=== PATIENT | male | born 1975 | race Caucasian/White ===

== ENCOUNTER 2016-12-22 15:14 | Inpatient (IN) | payer MEDICAID, OTHER ==
[2016-12-22 15:36] LABS: % IMMATURE GRANULYOCYTES 0.4 % (0.0-1.1); ABSOLUTE IMMATURE GRANULOCYTES 0.06 10^3/uL (0.00-0.10); ADD DIFF? NO; ADD MORPH? NO; ADD SCAN? NO; ATYPICAL LYMPHOCYTE FLAG 0 (0-99); FRAGMENT RBC FLAG 0 (0-99); HEMATOCRIT 47.6 % (40.0-51.0); HEMOGLOBIN 17.1 g/dL (13.7-17.5); LEFT SHIFT FLG 0 (0-99); LIPEMIA HEMOLYSIS FLAG 90 (0-99); MEAN CELL HEMOGLOBIN CONCENTR. 35.9 g/dL (32.4-36.7); MEAN CELL VOLUME 86.2 fL (81.5-99.8); MEAN PLATELET VOLUME 10.7 fL (8.7-11.7); PLATELET CLUMPS FLAG 20 (0-99); PLATELET COUNT 195 10^3/uL (150-400); RED BLOOD CELL COUNT 5.52 10^6/uL (4.40-6.38); RED CELL DISTRIBUTION WIDTH 13.5 % (11.5-15.2)
[2016-12-22] MEDS ORDERED: NS 1,000 ML IV ONE (15:37)
[2016-12-22 15:47] LABS: ANION GAP 13 mEq/L (8-16); CALCIUM 9.5 mg/dL (8.5-10.4); CARBON DIOXIDE 24 mEq/l (22-31); CHLORIDE 106 mEq/L (97-110); ETHANOL SERUM < 10 mg/dL (0-10); GLOMERULAR FILTRATION RATE > 60; GLUCOSE 81 mg/dL (70-100); POTASSIUM 3.9 mEq/L (3.5-5.2); SODIUM 143 mEq/L (134-144)
--- NOTE | 2016-12-22 15:47 | EDPHY ---
HPI/HX/ROS/PE/MDM Narrative: CHIEF COMPLAINT: Dizziness, weakness, numbness, left-sided facial droop HPI: The patient is a 41 y/o male with a history of hypertension and multiple head injuries complaining of dizziness, weakness, numbness, and left-sided facial droop onset 12:30 PM, 3 hours ago. He has a history of diplopia intermittently for the past few years. He has had nausea and vomiting for the past few weeks. He started taking hypertension medications 3 days ago. This morning he was cutting down trees on his property when a tree hit him on the forehead, causing an abrasion. He denies any symptoms after the injury. Around 12:30 PM, he was in his wood shed when he began feeling dizzy, like the "room was spinning". He sat down and a few minutes later laid down and either went to sleep or lost consciousness. About 45 minutes later, he got up and walked into his house. Family then took him to the ED. He has continued dizziness, numbness and weakness in the extremity, intermittent changes in his facial sensation, headache, facial droop, and slow speech. He denies any other associated symptoms. REVIEW OF SYSTEMS: Aside from elements discussed in the HPI, a comprehensive 10-point review of systems was reviewed and is negative. PMH: Multiple head injuries, hypertension, double vision, nausea, vomiting SOCIAL HISTORY: Lives in [facility], employed, PHYSICAL EXAM: General:Patient is alert, in no acute distress. ENT:Eyes are normal to inspection. ENT inspection normal. Neck: Normal inspection. Full range of motion. Respiratory:No respiratory distress. Breath sounds normal bilaterally. Cardiovascular: Regular rate and rhythm. Strong peripheral pulses. Normal cap refill. Abdomen:The abdomen is nontender to palpation. There are no peritoneal signs. There are normal bowel sounds. Back: Normal to inspection. No tenderness to palpation. Skin: 2 cm abrasion to forehead. Normal color. No rash. Warm and dry. Extremities: Normal appearance. Full range of motion. Neuro: Oriented x3. Weakness in left eye to lateral gaze. Mild left side pronator drift. Abnormal finger to nose with left hand. ED Course: Study: CT of the head Indication: Left-side weakness Results: CT scan of the head was obtained. The results of the study are: normal The study was read by the radiologist, Dr. Lopez. I viewed the images myself on the PACS system. EKG was ordered and interpreted by myself. Please see [employer] system for official reading. Study: CTA of the head and neck Indication: Left-side weakness Results: CTA scan of the head and neck was obtained. The results of the study are: normal The study was read by the radiologist, Dr. Monroe. I viewed the images myself on the PACS system. Study: MRI of the brain Indication: Left-sided weakness Results: MRI of the brain was obtained. The results of the study are: Acute right thalamic infarct The study was read by the radiologist, Dr. Monroe. I viewed the images myself on the PACS system. 160: Due to patient's condition I decided to call a stroke alert and consult with [facility]. 1948: I have continued to follow [facility]'s advise and MRI of his brain indicates acute right thalamic infarct which explains some of the patient' s symptoms. I will consult with them again for further actions. 1953: I spoke with Dr. Garcia regarding this patient. She advises to admit to the hospitalist service. I reassessed patient and informed him of the results of the workup. They agree to admission. 1957: I spoke with hospitalist service regarding admission for this patient. Dr. Oscar agrees to admit. MDM: This patient presents with facial droop, diplopia and ataxia. His workup was made somewhat difficult by report of possible alcohol use, possible head trauma from a tree branch, and his report that he has been suffering from diplopia on/ off for years. He was also unclear on the timing of onset of his deficits. Ultimately, MRI reveals thalamic CVA. On initial eval, [facility] did not feel that tPA was indicated secondary to timing. Patient treated with ASA after swallow screen. He will require admission for further workup and treatment. - Data Points Imaging Results: Imaging Impressions Head CT 12/22/16 15:29 Impression: Normal noncontrast CT of the brain. Results called to Dr. Cornell Coon at 3:55 PM at the time of the interpretation. Head CTA 12/22/16 16:34 Impression: Normal CT angiography of the neck. CT ANGIOGRAPHY OF THE HEAD: The major vessels of the [place] demonstrate no evidence of an aneurysm, avascular malformation, flow-limiting stenosis, or occlusion. The distal cervical, petrous, cavernous, and supraclinoid portions of the right and left internal carotid arteries and the vertebrobasilar system demonstrate no evidence of a flow-limiting stenosis, aneurysm, occlusion, or dissection. There is a dual supply to the posterior cerebral arteries, with circulatory inflow variant provided by the patent posterior communicating arteries off the supraclinoid ICAs. The superior sagittal sinus, transverse sinuses, and major veins demonstrate no evidence of intraluminal thrombi. Impression: Negative CT angiogram of the brain. Measurement of carotid stenosis is based on the residual internal carotid diameter with [place] Symptomatic Carotid Endarterectomy Trial (NASCET) based stenosis levels. Findings were discussed with Cornell Coon MD at 17:52, on 12/22/2016. Neck CTA 12/22/16 16:34 Impression: Normal CT angiography of the neck. CT ANGIOGRAPHY OF THE HEAD: The major vessels of the [place] demonstrate no evidence of an aneurysm, avascular malformation, flow-limiting stenosis, or occlusion. The distal cervical, petrous, cavernous, and supraclinoid portions of the right and left internal carotid arteries and the vertebrobasilar system demonstrate no evidence of a flow-limiting stenosis, aneurysm, occlusion, or dissection. There is a dual supply to the posterior cerebral arteries, with circulatory inflow variant provided by the patent posterior communicating arteries off the supraclinoid ICAs. The superior sagittal sinus, transverse sinuses, and major veins demonstrate no evidence of intraluminal thrombi. Impression: Negative CT angiogram of the brain. Measurement of carotid stenosis is based on the residual internal carotid diameter with [place] Symptomatic Carotid Endarterectomy Trial (NASCET) based stenosis levels. Findings were discussed with Cornell Coon MD at 17:52, on 12/22/2016. Brain MRI 12/22/16 18:04 Impression: Acute right thalamic infarct. Imaging: Discussed imaging studies w/ assistant clinical nurse manager Radiologist, I viewed and interpreted images myself Laboratory Results: Laboratory Results 12/22/16 15:26 12/22/16 15:26 12/22/16 12/22/16 12/22/16 15:26 15:26 15:26 WBC RBC Hgb POC Hgb Hct POC Hct MCV MCH MCHC RDW Plt Count MPV Neut % (Auto) Lymph % (Auto) Garza % (Auto) Eos % (Auto) Baso % (Auto) Nucleat RBC Rel Count Absolute Neuts (auto) Absolute Lymphs (auto) Absolute Monos (auto) Absolute Eos (auto) Absolute Basos (auto) Absolute Nucleated RBC Immature Gran % Immature Gran # PT 13.2 SEC SEC (12.0-15.0) INR 1.01 (0.83-1.16) APTT 26.9 SEC SEC (23.0-38.0) POC Sodium Sodium 143 mEq/L mEq/L (134-144) POC Potassium Potassium 3.9 mEq/L mEq/L (3.5-5.2) POC Chloride Chloride 106 mEq/L mEq/L (97-110) Carbon Dioxide 24 mEq/l mEq/l (22-31) Anion Gap 13 mEq/L mEq/L (8-16) POC BUN BUN 12 mg/dL mg/dL (7-23) Creatinine 1.0 mg/dL mg/dL (0.7-1.3) POC Creatinine Estimated GFR > 60 Glucose 81 mg/dL mg/dL (70-100) POC Glucose Calcium 9.5 mg/dL mg/dL (8.5-10.4) Troponin I < 0.012 ng/mL ng/mL (0.000-0.034) Ethyl Alcohol < 10 mg/dL mg/dL (0-10) 12/22/16 12/22/16 15:26 15:25 WBC 13.88 10^3/uL H 10^3/uL (3.80-9.50) RBC 5.52 10^6/uL 10^6/uL (4.40-6.38) Hgb 17.1 g/dL g/dL (13.7-17.5) POC Hgb 17.0 gm/dL gm/dL (13.7-17.5) Hct 47.6 % % (40.0-51.0) POC Hct 50 % % (40-51) MCV 86.2 fL fL (81.5-99.8) MCH 31.0 pg pg (27.9-34.1) MCHC 35.9 g/dL g/dL (32.4-36.7) RDW 13.5 % % (11.5-15.2) Plt Count 195 10^3/uL 10^3/uL (150-400) MPV 10.7 fL fL (8.7-11.7) Neut % (Auto) 76.6 % H % (39.3-74.2) Lymph % (Auto) 16.5 % % (15.0-45.0) Garza % (Auto) 5.1 % % (4.5-13.0) Eos % (Auto) 0.9 % % (0.6-7.6) Baso % (Auto) 0.5 % % (0.3-1.7) Nucleat RBC Rel Count 0.0 % % (0.0-0.2) Absolute Neuts (auto) 10.62 10^3/uL H 10^3/uL (1.70-6.50) Absolute Lymphs (auto) 2.29 10^3/uL 10^3/uL (1.00-3.00) Absolute Monos (auto) 0.71 10^3/uL 10^3/uL (0.30-0.80) Absolute Eos (auto) 0.13 10^3/uL 10^3/uL (0.03-0.40) Absolute Basos (auto) 0.07 10^3/uL 10^3/uL (0.02-0.10) Absolute Nucleated RBC 0.00 10^3/uL 10^3/uL (0-0.01) Immature Gran % 0.4 % % (0.0-1.1) Immature Gran # 0.06 10^3/uL 10^3/uL (0.00-0.10) PT INR APTT POC Sodium 144 mEq/L mEq/L (134-144) Sodium POC Potassium 3.6 mEq/L mEq/L (3.3-5.0) Potassium POC Chloride 106 mEq/L mEq/L (97-110) Chloride Carbon Dioxide Anion Gap POC BUN 12 mg/dL mg/dL (7-23) BUN Creatinine POC Creatinine 1.1 mg/dL mg/dL (0.7-1.3) Estimated GFR Glucose POC Glucose 83 mg/dL mg/dL (70-100) Calcium Troponin I Ethyl Alcohol Medications Given: Discontinued Medications Sodium Chloride (Ns) 1,000 mls @ 0 mls/hr IV EDNOW ONE; Wide Open PRN Reason: Protocol Stop: 12/22/16 15:38 Last Admin: 12/22/16 15:54 Dose: 1,000 mls Point of Care Test Results: 12/22/16 15:25 POC Sodium 144 POC Potassium 3.6 POC Chloride 106 POC BUN 12 POC Creatinine 1.1 POC Glucose 83 General Time Seen by Provider: 12/22/16 15:27 Initial Vital Signs: Initial Vital Signs Temperature (C) 37.0 C 12/22/16 15:17 Heart Rate 70 12/22/16 15:17 Respiratory Rate 16 12/22/16 15:17 Blood Pressure 159/101 H 12/22/16 15:17 O2 Sat (%) 98 12/22/16 15:17 O2 Delivery Mode Room Air Allergies/Adverse Reactions: No Known Allergies Allergy (Unverified 12/22/16 15:21) Home Medications: Medication Instructions Recorded Herbals/Supplements -Info Only 1 ea PO DAILY 12/22/16 Departure - Departure Disposition: [facility] Inpatient Acute Clinical Impression: Thalamic infarct, acute Condition: Fair Report Scribed for: Cornell Coon Report Scribed by: Jyothi Cuevas Date of Report: 12/22/16 Time of Report: 15:50 Physician Review and Approval Statement: Portions of this note were transcribed by an ED scribe. I personally performed the history, physical exam, and medical decision making; and confirm the accuracy of the information in the transcribed note.
[2016-12-22 15:51] LABS: INR 1.01 (0.83-1.16); PROTIME(PATIENT) 13.2 SEC (12.0-15.0)
[2016-12-22 15:52] LABS: APTT 26.9 SEC (23.0-38.0)
[2016-12-22] MEDS ORDERED: ALTEPLASE 100 MG/100 ML VIAL IV ONE (16:07)
--- NOTE | 2016-12-22 16:09 | CPEKG ---
Heart Rate: 50 RR Interval: 1200 P-R Interval: 160 QRSD Interval: 106 QT Interval: 468 QTC Interval: 427 P [place]: 8 QRS [place]: -20 T Wave [place]: 21 EKG Severity - ABNORMAL ECG - EKG Impression: SINUS RHYTHM EKG Impression: LEFT VENTRICULAR HYPERTROPHY Electronically Signed By: Graham Berrios 23-Dec-2016 08:43:16
[2016-12-22] MEDS ORDERED: IOPAMIDOL (ISOVUE 370) 100 ML BTL IV ONE (17:04)
[2016-12-22] MEDS ORDERED: GADOBUTROL 10 ML VIAL IVP ONE (18:15)
[2016-12-22] MEDS ORDERED: ASPIRIN 325 MG TAB PO ONE (20:04)
[2016-12-22] MEDS ORDERED: ZOLPIDEM TARTRATE 5 MG TAB PO PRN (21:34)
[2016-12-22] MEDS ORDERED: ONDANSETRON DISINTEGRATING 4 MG TAB PO PRN (21:34)
[2016-12-22] MEDS ORDERED: LORazepam 0.5 MG TAB PO PRN (21:34)
[2016-12-22] MEDS ORDERED: ONDANSETRON 4 MG/2 ML VIAL IVP PRN (21:34)
[2016-12-22] MEDS ORDERED: PROMETHAZINE HCL 25 MG/ML INJ IVP PRN (21:34)
--- NOTE | 2016-12-22 21:41 | PDGENHP ---
History and Physical - Chief Complaint double vision, vertigo - History of Present Illness 41 yo M with PMH of multiple head injuries but otherwise no real PMH presenting with acute onset of diplopia and vertigo beginning this afternoon. He notes he was doing yardwork when it began, he was cutting down a tree which ended up hitting him in the head. He felt dizzy and was having double vision shortly after that and either laid down and fell asleep or possibly fainted. Woke several hours later still with double vision, left sided weakness and left facial droop. Came to the ER, seen by tele neuro but noted to be outside of the window for TPA. Currently still having some left sided weakness but improved from prior, blurry vision on and off and dizzy when ambulating. GF present at bedside notes he has had blurry vision on and off x years and also had some kind of GI illness x 3 weeks that is now better. History Information - Allergies/Home Medication List Allergies/Adverse Reactions: No Known Allergies Allergy (Unverified 12/22/16 15:21) Home Medications: Herbals/Supplements -Info Only 1 ea PO DAILY 12/22/16 [Last Taken 12/22/16] I have personally reviewed and updated: family history, medical history, social history, surgical history - Past Medical History Additional medical history: multiple head injuries - Surgical History Reports: no pertinent surgical hx - Family History Additional family history: Father at age 54 of pna and renal failure. Mother still alive, has htn and liver disease - Social History Smoking Status: Current every day smoker Tobacco Use: Secondhand Alcohol Use: Rarely Drug Use: None Review of Systems Review of Systems: ROS: 10pt was reviewed & negative except for what was stated in HPI & below Physical Exam Physical Exam: Temp Pulse Resp BP Pulse Ox 36.9 C 53 L 18 126/79 H 97 12/22/16 20:10 12/22/16 20:10 12/22/16 20:10 12/22/16 20:10 12/22/16 20:10 Constitutional: no apparent distress, appears nourished Eyes: PERRL, anicteric sclera Ears, Nose, Mouth, Throat: moist mucous membranes, hearing normal Cardiovascular: regular rate and rhythym, no murmur, rub, or gallop, systolic murmur Respiratory: no respiratory distress, no rales or rhonchi, clear to auscultation Gastrointestinal: normoactive bowel sounds, soft, non-tender abdomen Genitourinary: no bladder tenderness Skin: warm, normal color, mottled Musculoskeletal: full muscle strength, no muscle tenderness Neurologic: AAOx3 Psychiatric: interacting appropriately, not anxious, not encephalopathic Lab Data & Imaging Review 12/22/16 15:26 12/22/16 15:26 WBC 13.88 10^3/uL (3.80-9.50) H 12/22/16 15: RBC 5.52 10^6/uL (4.40-6.38) 12/22/16 15: Hgb 17.1 g/dL (13.7-17.5) 12/22/16 15: POC Hgb 17.0 gm/dL (13.7-17.5) 12/22/16 15:25 Hct 47.6 % (40.0-51.0) 12/22/16 15: POC Hct 50 % (40-51) 12/22/16 15:25 MCV 86.2 fL (81.5-99.8) 12/22/16 15: MCH 31.0 pg (27.9-34.1) 12/22/16 15: MCHC 35.9 g/dL (32.4-36.7) 12/22/16 15: RDW 13.5 % (11.5-15.2) 12/22/16 15: Plt Count 195 10^3/uL (150-400) 12/22/16 15: MPV 10.7 fL (8.7-11.7) 12/22/16 15: Neut % (Auto) 76.6 % (39.3-74.2) H 12/22/16 15: Lymph % (Auto) 16.5 % (15.0-45.0) 12/22/16 15: [place] % (Auto) 5.1 % (4.5-13.0) 12/22/16 15: Eos % (Auto) 0.9 % (0.6-7.6) 12/22/16 15: Baso % (Auto) 0.5 % (0.3-1.7) 12/22/16 15: Nucleat RBC Rel Count 0.0 % (0.0-0.2) 12/22/16 15:26 Absolute Neuts (auto) 10.62 10^3/uL (1.70-6.50) H 12/22/16 15:26 Absolute Lymphs (auto) 2.29 10^3/uL (1.00-3.00) 12/22/16 15:26 Absolute Monos (auto) 0.71 10^3/uL (0.30-0.80) 12/22/16 15:26 Absolute Eos (auto) 0.13 10^3/uL (0.03-0.40) 12/22/16 15:26 Absolute Basos (auto) 0.07 10^3/uL (0.02-0.10) 12/22/16 15:26 Absolute Nucleated RBC 0.00 10^3/uL (0-0.01) 12/22/16 15:26 Immature Gran % 0.4 % (0.0-1.1) 12/22/16 15:26 Immature Gran # 0.06 10^3/uL (0.00-0.10) 12/22/16 15:26 PT 13.2 SEC (12.0-15.0) 12/22/16 15:26 INR 1.01 (0.83-1.16) 12/22/16 15:26 APTT 26.9 SEC (23.0-38.0) 12/22/16 15:26 POC Sodium 144 mEq/L (134-144) 12/22/16 15:25 Sodium 143 mEq/L (134-144) 12/22/16 15:26 POC Potassium 3.6 mEq/L (3.3-5.0) 12/22/16 15:25 Potassium 3.9 mEq/L (3.5-5.2) 12/22/16 15:26 POC Chloride 106 mEq/L (97-110) 12/22/16 15:25 Chloride 106 mEq/L (97-110) 12/22/16 15:26 Carbon Dioxide 24 mEq/l (22-31) 12/22/16 15:26 Anion Gap 13 mEq/L (8-16) 12/22/16 15:26 POC BUN 12 mg/dL (7-23) 12/22/16 15:25 BUN 12 mg/dL (7-23) 12/22/16 15:26 Creatinine 1.0 mg/dL (0.7-1.3) 12/22/16 15:26 POC Creatinine 1.1 mg/dL (0.7-1.3) 12/22/16 15:25 Estimated GFR > 60 12/22/16 15:26 Glucose 81 mg/dL (70-100) 12/22/16 15:26 POC Glucose 83 mg/dL (70-100) 12/22/16 15:25 Calcium 9.5 mg/dL (8.5-10.4) 12/22/16 15:26 Troponin I < 0.012 ng/mL (0.000-0.034) 12/22/16 15:26 Ethyl Alcohol < 10 mg/dL (0-10) 12/22/16 15:26 Visualized and Interpreted imaging results: Yes Interpretation: head CT: normal. Head/neck CTA: normal. Brain MRI: acute right thalamic stroke Visualized and Interpreted EKG results: Yes EKG Interpretation: Positive for: LVH, normal sinsus rhythm Assessment & Plan Assessment: Thalamic infarct, acute (Acute) 41 yo M with no significant PMH presenting with vision changes and vertigo found to be 2/2 acute right thalamic stroke # acute right thalamic stroke: with no known RFs, patient presented out of the window for TPA. Will monitor on telemetry, obtain echocardiogram, lipid panel and hgb A1c. Neurology consulted. # bradycardia: mildly bradycardic and asymptomatic thus far with that, as above , monitoring on tele. If w/u in house negative, may require outpatient holter/ event monitor for further evaluation. # leukocytosis: without s/s to suggest infection and likely stress response, will repeat cbc in am # dispo: given acute CVA, high risk in young patient without known risk factors , will require > 48 hours stay for eval/mgmt Patient new to my care. Old records reviewed and summarized as above. Care plan reviewed with ER doctor including plans for neurology consult.
[2016-12-22] MEDS: NICOTINE 14 MG/24 HR PATCH TD SCH (23:49)
[2016-12-23 05:04] LABS: HEMATOCRIT 42.3 % (40.0-51.0); HEMOGLOBIN 14.9 g/dL (13.7-17.5); MEAN CELL HEMOGLOBIN 30.7 pg (27.9-34.1); MEAN CELL HEMOGLOBIN CONCENTR. 35.2 g/dL (32.4-36.7); RED BLOOD CELL COUNT 4.86 10^6/uL (4.40-6.38); RED CELL DISTRIBUTION WIDTH 13.8 % (11.5-15.2)
[2016-12-23 05:21] LABS: CHOLESTEROL 116 mg/dL (140-200); CHOLESTEROL/HDL RATIO 3.31 RATIO (1.00-4.97); HIGH DENSITY LIPOPROTEIN 35 mg/dL (40-65); LDL/HDL RATIO 1.51 RATIO (1.00-3.64); LOW DENSITY LIPOPROTEIN 53 mg/dL (70-100); NON-HIGH DENSITY LIPOPROTEIN 81 mg/dL (90-129); TRIGLYCERIDE 144 mg/dL (40-150); VERY LOW DENSITY LIPOPROTEINS 28 mg/dL (8-25)
[2016-12-23] MEDS: ACETAMINOPHEN 325 MG TAB PO PRN ×3 (05:24→21:43)
[2016-12-23] MEDS: oxyCODONE IR 5 MG TAB PO PRN ×2 (05:25→21:43)
[2016-12-23] MEDS: ASPIRIN 81 MG CHEWABLE TAB PO SCH (08:41)
[2016-12-23] MEDS: NICOTINE 14 MG/24 HR PATCH TD SCH (08:41)
[2016-12-23 09:45] LABS: HEMOGLOBIN A1C 5.5 % (4.0-6.0)
--- NOTE | 2016-12-23 10:20 | PDMN ---
Medical Necessity Medical necessity: Pt meets IP criteria per MD; est los >2 mn for eval/tx of acute R thalamic stroke w/vision changes, vertigo, bradycardia & leukocytosis; hx multiple head injuries; per H&P & order 12/22/16
--- NOTE | 2016-12-23 10:27 | NEUROPROG ---
Assessment: HOSPITAL NEUROLOGY CONSULT REQUESTING: Dawn Oscar MD REASON: stroke HPI: 41 year old right-handed man with a history of multiple head injuries presented to our ED yesterday as a stroke alert. Patient was felling trees on his property yesterday morning. He notes an aspen tree had pinned down another tree. The aspen was putting pressure on a large branch. He cut the aspen and the other tree's branch recoiled, striking him in the head. He denies LOC, but he did suffer a brow abrasion. He felt lightheaded after the blow, like he might pass out. He also had horizontal diplopia intermittently (though this seems long standing per patient report). He walked to his wood shed and sat down. He thinks he either passed out or fell asleep for 45 minutes. He regained awareness and went to his house, where his noted a left facial droop. The patient also felt his left arm and leg were weak. He denies any sensation loss, vision loss, speech/language disturbance. No prior history of stroke/TIA. CT head was done in the ED and was normal. CTA head/neck was also normal. MRI brain wow was done in the ED revealing an acute ischemic lacunar stroke in the right thalamus. Telestroke was consulted and he was not deemed a thrombolytic candidate due to being outside the window for intervention. He was admitted for further workup. Today, he feels fatigued and continues to have intermittent diplopia. He feels his weakness is better. ROS: As per the HPI, otherwise a complete 12 point ROS was performed and is negative ALLERGIES AND MEDS: As recorded in the EMR - reviewed and reconciled PFSH: As per the intake H&P by Dr. Oscar from yesterday EXAM: VS reviewed in EMR GEN: WDWN laying in NAD HEENT: NCAT, sclera anicteric, conjunctiva not injected, MMM, oropharynx clear, no scalp tenderness NECK: supple, nontender, no meningismus CV: RRR s1 s2 wo m/r/c/g. Carotid pulses 2+ wo bruit NEURO: MS: awake, alert, oriented to all spheres. Speech nondysarthric. No language disturbance. Follows commands. Attends to both sides. Recent/remote memory grossly intact. Mood blunted/withdrawn. Adequate fund of knowledge. CN: pupils 4mm round and reactive. Fundi with sharp discs. VFF. Primary gaze centered. Full ocular motility. Facial sensation preserved. Face symmetric. Hearing grossly intact to finger rub. Palatoglossal movements intact. Shoulder shrug and head turn strong. MOTOR: normal bulk/tone. No adventitial movements. Full power throughout. SENSORY: intact to all modalities throughout. No extinction. COORD: no ataxia FN/HS. Barry preserved. REFLEX: plantars down. No clonus. DTRS 2/4. GAIT: deferred to PT safety eval DATA REVIEW: Labs reviewed in EMR TTE pending LDL 53 A1c pending PERSONALLY INTERPRETED RESULTS AND DATA: MRI brain wow - per the HPI CTA head/neck - per the HPI IMPRESSION AND RECOMMENDATIONS: // ACUTE ISCHEMIC STROKE Patient with acute right thalamic lacunar stroke with resolving symptoms. Suspect his longer standing diplopia is likely from prior head injuries. Suspect his stroke mechanism is from small vessel shearing with head trauma, but this will be a diagnosis of exclusion. He will need investigation for other stroke mechanisms in a young patient. - continue ASA - awaiting TTE result - goal normotension - add low dose statin for pleiotropic effects - LDL at goal < 70 - goal normoglycemia with A1c < 6.5 - PT/OT/RIDDLER OPERATOR consults - stroke education - patient counseling on avoiding further head injury - will need outpatient cardiology for evaluation/rule out of paroxysmal arrhythmia with mobile cardiac telemetry (ie 30 day Holter vs LINQ) - will need outpatient hematology consultation for evaluation/rule out of hypercoaguable state - followup with neurology in 6-8 weeks - followup PCP within 1 week of discharge Objective: Vital Signs Temp Pulse Resp BP Pulse Ox 36.2 C 53 L 17 134/75 H 94 12/23/16 07:59 12/23/16 07:59 12/23/16 07:59 12/23/16 07:59 12/23/16 07:59 Laboratory Results 12/23/16 04:50 12/22/16 12/23/16 12/24/16 05:59 05:59 05:59 Intake Total 1710 740 Balance 1710 740 PT 13.2 SEC (12.0-15.0) 12/22/16 15:26 INR 1.01 (0.83-1.16) 12/22/16 15:26 Allergies/Adverse Reactions: No Known Allergies Allergy (Unverified 12/22/16 15:21)
--- NOTE | 2016-12-23 11:02 | ECHO ---
[email or web address] [address] [address] Main: [phone] Fax: Transthoracic Echocardiogram Name: KEITH WEST MR#: [id number] Study Date: 12/23/2016 Study Time: 08:23 AM Date of : 1975 Age: 41 year(s) Height: 180.3 cm (71 in.) Weight: 81.65 kg (180 lb.) BSA: 2.02 m2 Gender: Male Examination: Echo Indication: Ischemic Stroke with Bubble Image Quality: Contrast: Requested by: Dawn Oscar BP: 134 mmHg/75 mmHg Heart Rate: Rhythm: Indication: Ischemic Stroke with Bubble Procedure Staff Color Consultant: Erik Merritt Reading Physician: Mamadou Moyer Requesting Provider: Conclusions: Normal global systolic LV function. EF is 61 %. Mild to moderate mitral regurgitation. Mild to moderate aortic valve regurgitation. Measurements: Chambers Valvular Assessment AV/MV Valvular Assessment TV/PV Normal Normal Normal Name Value Range Name Value Range Name Value Range Ao Pepper (MM): 2.9 cm (2.2 cm-3.7 AV Vmax: 1.84 m/s (1 m/s-1.7 TR Vmax: 2.89 mm/s ( - ) cm) m/s) TR PGmax: 33 mmHg ( - ) IVSd (2D): 0.8 cm (0.6 cm-1.1 AV maxP mmHg ( - ) syst. PAP: 38 mmHg ( - ) cm) AV meanP mmHg ( - ) LVDd (2D): 5.0 cm (4.2 cm-5.9 LVOT Vmax: 1.08 m/s (0.7 m/s-1.1 cm) m/s) LVDs (2D): 3.3 cm (2.1 cm-4 ILAN (Vmax): 1.8 cm2 ( - ) cm) ILAN (VTI): 1.8 cm ( - ) LVPWd (2D): 0.9 cm (0.6 cm-1 AR (PHT): 756 ms ( - ) cm) MV meanP mmHg ( - ) LVOTd 2.0 cm 2.0 cm mm MVA (Vmax): 1.6 m/s ( - ) LVEF (2D): 61 (>=54 %) Continued Measurements: Chambers Valvular Assessment AV/MV Valvular Assessment TV/PV Name Value Name Value Name Value LADs Lon.6 cm MV Annulus: 3.1 cm CVP (est.): 5 mmHg LA Area: 21.9 cm2 MV VTI: 56.00 cm LA Volume: 51 ml MR Vena Contracta: 0.6 cm LA Volume Index: 25.2 ml/m2 MR ERO: 0.200 cm2 Patient: KEITH WEST Study Date: 12/23/2016 Page 1 of 2 08:23 AM MR PISA radius: 7 mm MR Reg. Volume: 41 ml MR Reg. Fraction: 10 % AR Vmax: 4.53 cm/s AR VTI: 332.0 cm Findings: Left Ventricle: Normal size left ventricle. No LV hypertrophy. Normal global systolic LV function. EF is 61 %. No regional wall motion abnormality. Normal diastolic LV function. Right Ventricle: Normal size right ventricle. Normal RV function. Left Atrium: The left atrium is normal in size. An agitated saline study was performed and was negative for intracardiac shunting. Right Atrium: The right atrium is normal in size. Mitral Valve: The mitral valve is normal in appearance. Mild to moderate mitral regurgitation. Aortic Valve: The aortic valve is tri-leaflet. The aortic valve is normal in appearance. Mild to moderate aortic valve regurgitation. Tricuspid Valve: The tricuspid valve appears normal. Trivial tricuspid valve regurgitation. The pulmonary artery pressure is normal. Pulmonic Valve: The pulmonic valve is normal in appearance and function. Aorta: The aorta is normal. Pericardium: No pericardial effusion. (No Signature Object) Patient: KEITH WEST Study Date: 12/23/2016 Page 2 of 2 08:23 AM [id number]
--- NOTE | 2016-12-23 16:44 | ASMTCMCOM ---
CM Note CM Note Notes: Chart reviewed. patient admitted with acute stroke, He lives in [place] with his and four children. 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 History of CHI and infact sustained a blow yesterday while cutting down trees. OT recommending an inpatient evaluation for rehab. Kimberly cortés. Dr. Kyle placed order. Final needs to be determined. CM to follow. Date Signed: 12/23/2016 04:44 PM Electronically Signed By:Leny Busch RN
--- NOTE | 2016-12-23 17:35 | HOSPPROG ---
Hospitalist Progress Note Assessment/Plan: * Acute thalamic stroke -suspect small vessel shear due to head trauma -ASA, low dose statin -outpatient cardiology consult - 30 day Holter vs. LINQ -outpatient hematology for hypercoag work-up * Cognitive dysfunction due to stroke -rehab consult * Recurrent TBI with chronic diplopia * Bradycardia -asymptomatic * Tobacco dependence -patch -advise cessation Subjective: no new complaints Objective: Vital Signs Temp Pulse Resp BP Pulse Ox 37.1 C 51 L 17 128/70 H 94 12/23/16 15:44 12/23/16 15:44 12/23/16 15:44 12/23/16 15:44 12/23/16 15:44 Laboratory Results 12/23/16 04:50 12/22/16 12/23/16 12/24/16 05:59 05:59 05:59 Intake Total 1710 740 Balance 1710 740 PT 13.2 SEC (12.0-15.0) 12/22/16 15:26 INR 1.01 (0.83-1.16) 12/22/16 15:26 ECHO - normal Brain MRI - thalamic stroke EKG viewed, my personal interpretation is - sinus bradycardia - Physical Exam Constitutional: no apparent distress, appears nourished, not in pain Cardiovascular: regular rate and rhythym, no murmur, rub, or gallop Respiratory: no respiratory distress, no rales or rhonchi, clear to auscultation Gastrointestinal: normoactive bowel sounds, soft, non-tender abdomen, no palpable masses Skin: no rashes or abrasions, no fluctuance, no induration Neurologic: AAOx3, sensation intact bilaterally Psychiatric: interacting appropriately, not anxious, not encephalopathic, thought process linear ICD10 Worksheet Patient Problems: Problems Problem Status Onset Thalamic infarct, acute Acute
[2016-12-24] MEDS: ASPIRIN 81 MG CHEWABLE TAB PO SCH (07:41)
[2016-12-24] MEDS: ATORVASTATIN CALCIUM 10 MG TAB PO SCH (07:41)
[2016-12-24] MEDS: NICOTINE 14 MG/24 HR PATCH TD SCH (07:41)
[2016-12-24] MEDS: ACETAMINOPHEN 325 MG TAB PO PRN ×2 (14:45→19:11)
--- NOTE | 2016-12-24 15:58 | ASMTCMCOM ---
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 Iveth Malone with [facility] inpatient rehab is assessing pt and met w him bedside today, can accept him tomorrow. This CM spoke w pt who would be agreeable to d/c to [facility] inpatient rehab. Pt states if he is home he will be responsible for his children from approximately noon to 7pm daily. The [facility] inpatient rehab can greatly assist pt with current deficits and it sounds as though pt did not receive any skilled treatment/therapy after his past head injuries. D/c plan of care: [facility] inpatient rehab when medically stable. Date Signed: 12/24/2016 03:57 PM Electronically Signed By:ANASTASIA Hernandez
--- NOTE | 2016-12-24 17:18 | SOAPPROG ---
SOAP Progress Note Assessment/Plan: * Acute thalamic stroke -suspect small vessel shear due to head trauma -ASA, low dose statin -outpatient cardiology consult - 30 day Holter vs. LINQ -outpatient hematology for hypercoag work-up * Cognitive dysfunction due to stroke -rehab accepted, transfer in AM * Recurrent TBI with chronic diplopia * Bradycardia -asymptomatic * Tobacco dependence -patch -advise cessation as revwd stroke risks in general Subjective: Feels well today. Would like inpt rehab. Denies CP/SOB. Has a mild MÉNDEZ. Objective: Vital Signs Temp Pulse Resp BP Pulse Ox 98.1 F 55 L 14 132/83 H 95 12/24/16 15:37 12/24/16 15:37 12/24/16 15:37 12/24/16 15:37 12/24/16 15:37 Laboratory Results 12/23/16 04:50 12/23/16 12/24/16 12/25/16 11:59 11:59 11:59 Intake Total 2450 1800 300 Balance 2450 1800 300 PT 13.2 SEC (12.0-15.0) 12/22/16 15:26 INR 1.01 (0.83-1.16) 12/22/16 15:26 Physical Exam - Physical Exam General Appearance: WD/WN, alert, no apparent distress EENT: normal ENT inspection Neck: supple, normal inspection Respiratory: chest non-tender, lungs clear, normal breath sounds Cardiac/Chest: normal peripheral pulses, regular rate, rhythm Neuro/Psych: alert, normal mood/affect ICD10 Worksheet Patient Problems: Problems Problem Status Onset Thalamic infarct, acute Acute
[2016-12-25 07:21] VITALS: BP 126/73; PULSE 55; RESP 14; TEMP 98; O2SAT 97
[2016-12-25] MEDS: ATORVASTATIN CALCIUM 10 MG TAB PO SCH (08:17)
[2016-12-25] MEDS: NICOTINE 14 MG/24 HR PATCH TD SCH (08:17)
[2016-12-25] MEDS: ACETAMINOPHEN 325 MG TAB PO PRN (08:18)
[2016-12-25] MEDS: ASPIRIN 81 MG CHEWABLE TAB PO SCH (08:21)
--- NOTE | 2016-12-25 09:32 | PDIAF ---
- Diagnosis Code Status: Full Code - Medication Management Discharge Medications: Medications to Continue on Transfer Acetaminophen [Tylenol 325mg (*)] 650 mg PO Q4HRS PRN tab 12/25/16 [Last Taken Unknown] Aspirin [Aspirin 81mg (*)] 81 mg PO DAILY tab.chew 12/25/16 [Last Taken Unknown ] Atorvastatin Calcium [Lipitor 10 mg (*)] 10 mg PO DAILY tab 12/25/16 [Last Taken Unknown] Nicotine [Nicoderm Cq 14 mg (*)] 14 mg TD DAILY patch 12/25/16 [Last Taken Unknown] Ondansetron Odt [Zofran Odt 4 mg (*)] 4 mg PO Q4HRS PRN tab 12/25/16 [Last Taken Unknown] Zolpidem Tartrate [Ambien 5MG (*)] 5 - 10 mg PO HS PRN tab 12/25/16 [Last Taken Unknown] oxyCODONE IR [Oxycodone Ir (*)] 5 - 10 mg PO Q3HRS PRN tab 12/25/16 [Last Taken Unknown] 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 PICC Care - Routine: N/A - Orders Services needed: Physical Therapy, Occupational Therapy, Speech Language Pathologist Home Care Face to Face: done 12/25/2016 Isolation Type: None Diet Recommendation: no restrictions on diet Diet Texture: Regular Texture Diet Gonzales: Not applicable - Follow Up Care Current Providers and Referrals: Brian Mirza MD [Primary Care Provider] - 3 days of d/c SNF/Rehab
--- NOTE | 2016-12-25 10:46 | ASDISCHSUM ---
Discharge Information Plan Status:Inpatient Rehab Medically Cleared to Leave: Discharge Date:12/25/2016 10:44 AM D/C Disposition:[facility] Inpatient Acute ADT D/C Disposition:[facility] IP Projected Discharge Date:12/25/2016 11:00 AM Transportation at D/C: Discharge Delay Reason: Follow-Up Date:12/25/2016 11:00 AM Discharge Slot: Final Diagnosis: Placement Information Referral Type:Rehabilitation Hospital Referral ID:[id number] Provider Name:[facility] Inpatient Rehab Address 1:[address] Phone Number: Address 2: Fax Number: City:[place] Selection Factors: State:[place] Patient Contact Information Contact Name:VIELKA Relationship: Address:[address] [place] [address] Work Phone: City:[place] Alternate Phone: State/[facility] Code:[place] [id number] Email: Financial Information Financial Class: Primary Plan Desc:[facility]ICAID [facility] Primary Plan Number:[id number] Secondary Plan Desc: Secondary Plan Number: Assessment Information LACE LACE Length of stay for Answers: 1 day current admission Acuity / Level of Care Answers: Was the patient admitted to hospital via the emergency department? Yes: Comorbidities - select Answers: Cerebrovascular disease all that apply Emergency dept visits in Answers: 0 last 6 months Score: 5 Date Signed: 12/23/2016 03:48 PM Electronically Signed By:Leny Busch RN [facility] DIRK Progress Note CM Note CM Note Notes: Chart reviewed. patient admitted with acute stroke, He lives in [place] with his and four children. 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 History of CHI and infact sustained a blow yesterday while cutting down trees. OT recommending an inpatient evaluation for rehab. Kimberly Kyle placed order. Final needs to be determined. CM to follow. Date Signed: 12/23/2016 04:44 PM Electronically Signed By:Leny Busch RN 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 Iveth Malone with [facility] inpatient rehab is assessing pt and met w him bedside today, can accept him tomorrow. This CM spoke w pt who would be agreeable to d/c to [facility] inpatient rehab. Pt states if he is home he will be responsible for his children from approximately noon to 7pm daily. The [facility] inpatient rehab can greatly assist pt with current deficits and it sounds as though pt did not receive any skilled treatment/therapy after his past head injuries. D/c plan of care: [facility] inpatient rehab when medically stable. Date Signed: 12/24/2016 03:57 PM Electronically Signed By:ANASTASIA Hernandez [facility] CM Progress Note CM Note CM Note Notes: Pt is medically stable for d/c to [facility] inpatient rehabilitation. Pt will transport. MARQUISE Gavin to call report. Orders to be obtained via [employer]. Date Signed: 12/25/2016 10:45 AM Electronically Signed By:ANASTASIA Hernandez Intervention Information
--- NOTE | 2016-12-25 10:46 | ASMTCMCOM ---
CM Note CM Note Notes: Pt is medically stable for d/c to [facility] inpatient rehabilitation. Pt will transport. MARQUISE Gavin to call report. Orders to be obtained via [employer]. Date Signed: 12/25/2016 10:45 AM Electronically Signed By:ANASTASIA Hernandez
--- NOTE | 2016-12-25 18:47 | GDS ---
[f rep st] DISCHARGE SUMMARY SERVICE: [facility] hospitalists. CONSULTS: Neurology-Dr. Lizama. PROCEDURES: Head CT, head CTA, neck CTA, brain MRI, echocardiogram. INITIAL HISTORY AND PHYSICAL: Please see previously dictated note by Dr. Oscar. ADMISSION DIAGNOSES: 1. Acute thalamic infarct/stroke. 2. Asymptomatic bradycardia. 3. Leukocytosis. DISCHARGE DIAGNOSES: 1. Acute thalamic infarct/stroke. 2. Asymptomatic bradycardia. 3. Leukocytosis, resolved 4. Tobacco use. HOSPITAL COURSE: 1. Acute thalamic stroke. He came into the emergency department after having experienced a head trauma at home while clearing up trees. Likely had a loss of consciousness for up to 45 minutes. Afterwards was noted to have a left facial droop by his . MRI confirmed a small vessel area of infarct in the thalamus. Stroke alert was called but he was outside the window for thrombolytics. He was started on aspirin and a low-dose statin. Neurology, Dr. Lizama, also saw the patient. Echocardiogram was done and was negative for intracardiac shunting. CTAs of head and neck were done and showed no vascular abnormality. Recommendations were to continue outpatient workup with either 30 day Holter or a link and also Hematology for hypercoagulable workup. His symptoms have resolved other than mild cognitive defect. He has been accepted to inpatient rehab for further evaluation. Strongly encouraged complete tobacco cessation and a patch was applied throughout his stay. 2. Asymptomatic bradycardia. He is noted to be in the 40s to 50s occasionally throughout his stay, but had no symptoms or heart block noted on telemetry. DISCHARGE MEDICATIONS: Tylenol as needed, nicotine patch daily, Zofran as needed, oxycodone as needed, Ambien as needed, aspirin 81 mg once a day, Lipitor 10 mg once a day. He has been instructed to follow up with his primary care provider, Dr. Mirza , within 3-5 days of discharge from inpatient rehab. He should follow up with Dr. Lizama within 2 weeks of discharge from rehab. He is being transferred to [facility] inpatient rehab today for ongoing therapy. /[id number]/MODL MTDD
== END 2016-12-25 10:44 | DRG 66 ==
LOC: UNDOADMOB 19:59 → INTOOBSV 20:00 → OBSVTOIN 20:00 → F3N 21:45
PROVIDERS: ADMIT Internal Medicine; ATTEND Family Medicine
DX: I63.9 Cerebral infarction, unspecified (principal); R41.9 Unspecified symptoms and signs involving cognitive functions and awareness; R00.1 Bradycardia, unspecified; D72.829 Elevated white blood cell count, unspecified; H53.2 Diplopia; R29.706 NIHSS score 6; Z87.820 Personal history of traumatic brain injury; Z72.0 Tobacco use
CPT/HCPCS: 80305; 82947-QW; 92507-GN; 92523-GN; 97116-GP; 97162-GP; 97166-GO; 97530-GO; 97535-GO; A9585; G0480; J2997; Q9967

== ENCOUNTER 2016-12-24 15:41 | Inpatient (IN) | payer MEDICAID ==
[2016-12-25] MEDS ORDERED: ZOLPIDEM TARTRATE 5 MG TAB PO PRN (12:04)
[2016-12-25] MEDS ORDERED: oxyCODONE IR 5 MG TAB PO PRN (12:04)
[2016-12-25] MEDS ORDERED: ONDANSETRON DISINTEGRATING 4 MG TAB PO PRN (12:04)
[2016-12-25] MEDS ORDERED: BISACODYL 10 MG SUPP PR PRN (12:08)
[2016-12-25] MEDS ORDERED: SENNOSIDES 1 TAB PO PRN (12:08)
--- NOTE | 2016-12-25 13:21 | GHP ---
[f rep st] HISTORY AND PHYSICAL POST ADMISSION PHYSICIAN EVALUATION AND REHABILITATION TREATMENT PLAN. DATE OF ADMISSION: 12/25/2016 REFERRING FACILITY: [facility]. REFERRING PHYSICIAN: Dawn Oscar MD IMPAIRMENT GROUP: 14.9. DATE OF ONSET: 12/22/2016. CONSULTING PHYSICIAN: He was seen by Neurology, Dr. Lizama. REHABILITATION DIAGNOSIS: Right thalamic lacunar cerebrovascular accident following head trauma. ETIOLOGIC DIAGNOSIS: Other multiple trauma. HISTORY OF PRESENT ILLNESS: This patient sustained head trauma while doing yard work. He was hit in the head with a tree branch. He felt dizzy and had double vision shortly after. He either lost consciousness or fell asleep for a period of time afterwards and subsequently continued to have double vision, left -sided weakness and left facial droop. He was brought to [facility] and was seen by the [facility] Neurology group. He was judged to be out of the time window for thrombolytics and he was admitted. MRI revealed an acute right thalamic lacunar infarction. CT angiogram did not find any cerebrovascular abnormalities. He was begun on aspirin and atorvastatin and assessed by therapies. He was stabilized and appropriate for inpatient rehabilitation. STUDIES AND LABS: During his stay, CBC initially showed an elevated white blood cell count at 13.88, but this resolved the following day with a completely normal CBC on 12/23/2016. Coagulation studies revealed normal PT and PTT. Serum chemistry revealed normal renal function and electrolytes. Troponin-I was negative. Hemoglobin A1c was 5.5. Lipid panel showed cholesterol of 116 and LDL of 53, HDL was 35. TSH was normal at 1.71. Toxicology screen in the serum was negative for ethyl alcohol, and in the urine was negative for any substances of abuse. PRECAUTIONS: He is a fall risk. ACTIVE COMORBIDITIES: He has no tier 1, tier 2 or tier 3 comorbidities. PAST MEDICAL HISTORY: 1. Multiple concussions. 2. Recent gastrointestinal illness which lasted several weeks with nausea and he reports he had some weight loss. 3. Migraine headaches. PAST SURGICAL HISTORY: He denies any history of surgeries. PREHOSPITAL MEDICATIONS: He was taking no medications. ADMISSION MEDICATIONS: 1. Acetaminophen 650 mg p.o. q.4 hours p.r.n. 2. Aspirin 81 mg p.o. daily. 3. Atorvastatin 10 mg p.o. daily. 4. Nicotine patch 14 mg transdermal daily. 5. Ondansetron 4 mg p.o. q.4 hours p.r.n. 6. Oxycodone 5 mg q.3 hours p.r.n. 7. Zolpidem 5-10 mg p.o. at bedtime p.r.n. ALLERGIES: There are no known drug allergies. FAMILY HISTORY: He denies any family history of cerebrovascular disease or blood clots. PSYCHOSOCIAL HISTORY: He is . He lives with his . His works corporate planning manager. They have 2 sets of twins, age 4 and 2. He does the predominance of the housework. 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 He is a smoker. He denies excessive alcohol use or other substances of abuse. REVIEW OF SYSTEMS: He feels that his strength has largely returned to normal. He does note some areas of numbness in his left extremities. He has an occasional headache and has a history of migraines. He denies difficulty swallowing. The double vision has resolved. He denies chest pain or palpitations. He denies nausea, vomiting, constipation, or diarrhea, and has a good appetite. He denies dysuria or urinary frequency. He denies skin rash or skin breakdown. He denies joint pain or joint swelling and otherwise a 10- point review of systems is negative. PHYSICAL EXAMINATION: VITAL SIGNS: Blood pressure is 140/81, heart rate is 60 , respiratory rate is 12, oxygen saturation is 97% on room air. Temperature is 36.7 degrees centigrade. His weight is 97.9 kg for a body mass index of 32.8. GENERAL: This is a well-nourished, well-developed, obese man, sitting on the edge of bed, dressed in street clothes, cooperative and in no acute distress. HEENT: Extraocular movements are intact. Pupils are equal, round, reactive to light. Mucous membranes are moist. Dentition is in good condition. He has a moderately crowded airway, Mallampati class 2. NECK: Supple. HEART: There is regular rate and rhythm with no murmurs, rubs, or gallops. LUNGS: Clear to auscultation bilaterally. ABDOMEN: Soft, nontender, nondistended with normoactive bowel sounds and no hepatosplenomegaly. EXTREMITIES: There is no cyanosis, clubbing, or edema. Radial pulses are 2+ bilaterally. Dorsalis pedis pulses are trace bilaterally. NEUROLOGIC: He is alert and oriented x3. He has a mild left facial droop, but otherwise cranial nerves 2-12 appear to be grossly intact. There is no focal weakness. Sensation is intact to light touch. Deep tendon reflexes are globally hypoactive. There is no pronator drift. [id number] testing is within normal limits. Plantar reflex is indeterminate. Current level of function per the pre-admission screen. Regarding diet, feeding , and swallowing, he required set up. For grooming, he required setup. For bathing, he needed assistance. He needed standby assist for upper body dressing. For toileting, he required standby assist. He was independent with bed mobility. Transfers were done with contact guard assist but toilet transfer with standby assist. His balance was poor and his endurance was poor. He ambulated 100 feet with standby assist. He was noted to have a mild cognitive deficit. He is mildly dysarthric. IMPRESSION: This patient is a 41-year-old man who had the unfortunate circumstance of suffering a right thalamic lacunar cerebral infarction in conjunction with head trauma. He had weakness of the left upper and lower extremities, which has largely improved. He has mild dysarthria and he has balance impairment. The etiology of the stroke was not completely apparent. It may be due to shearing effect with the head trauma. However, neurology recommended workup for cryptogenic causes including a cardiac cath rn and testing for hypercoagulable states. He is a smoker. He has been encouraged to stop smoking and has a nicotine patch. He is otherwise stable and appropriate for inpatient rehabilitation. He will benefit from physical and occupational therapies to optimize his mobility and activities of daily living with a goal of independent function and being able to care for his children and [employer] to optimize his cognition. He will benefit from nursing care regarding fall risk, skin integrity, bowel and bladder, medication administration and medication education. He will benefit from the care of a physician regarding elevated blood pressure and possible hypertension, headaches and any other comorbidities which may arise during his stay. His goal is to return home with his family as well as home health care as needed and any durable medical equipment that might be needed. For a safe discharge it is expected that he will achieve modified independence with mobility, ADLs, cognition and medication management. There will be medication education and neurologic education for the patient and the family regarding stroke and traumatic brain injury. He will be family training. He will have therapy with physical therapy, occupational therapy, and speech and language pathology for 60 minutes per day per discipline on 5-7 days per week. His expected duration of stay is 10-12 days. It is anticipated that upon discharge he will continue to benefit from home health services including speech and language pathology, social work, OT and PT. Additionally, he may benefit from a stroke and brain injury support group. IMPRESSION: 1. Cerebrovascular accident, right lacunar thalamic. Physical Therapy and Occupational Therapy to optimize mobility and activities of daily living towards return to home with sufficient independence to care for his children. 2. Cognitive impairment. Unclear how much is preexisting with history of concussions. However, he was employed and taking care of children. Evaluation per Speech and Language Pathology. 3. Cryptogenic etiology of stroke. Neurology advised a 1 month cardiac cath rn to rule out occult atrial fibrillation as well as laboratory evaluation for hypercoagulable state with a referral to Hematology/Oncology. Continue aspirin and atorvastatin for secondary prevention. Monitor blood pressure. 4. Tobacco dependence syndrome. He is advised on smoking cessation. Continue nicotine patch and plan to taper approximately q.7 days. Referral to a smoking cessation program as an outpatient would be appropriate. 5. Headache. Continue acetaminophen on a p.r.n. basis. Oxycodone has also been ordered and it is hoped that he will not need opiates. 6. Prophylaxis. He has ambulated 100 feet. He is not hemiplegic. He is obese , but he is not elderly. We will monitor for improved mobility and will not initiate any prophylactic anticoagulation at present. /[id number]/MODL MTDD
--- NOTE | 2016-12-25 15:25 | PDOREHIP ---
Admission [facility] - Admission - 3 Day Assessment Period Admission Date/Day 1: 12/25/16 Day 2: 12/26/16 Day 3: 12/27/16 - Active Diagnoses Comorbidities and Co-existing Conditions at Admission: 452[address]. None of the Above - Skin Conditions Unhealed Pressure Ulcer (1 or more/Stage 1 or >)-Admission: 0. No
[2016-12-25] MEDS: ACETAMINOPHEN 325 MG TAB PO PRN (16:58)
[2016-12-26] MEDS: NICOTINE 14 MG/24 HR PATCH TD SCH (08:40)
[2016-12-26] MEDS: ASPIRIN 81 MG CHEWABLE TAB PO SCH (08:41)
[2016-12-26] MEDS: ACETAMINOPHEN 325 MG TAB PO PRN ×2 (08:41→19:28)
[2016-12-26] MEDS: ATORVASTATIN CALCIUM 10 MG TAB PO SCH (08:41)
--- NOTE | 2016-12-26 14:24 | SOAPPROG ---
SOAP Progress Note Assessment/Plan: Assessment: Cerebrovascular accident, right lacunar thalamic. Physical Therapy and Occupational Therapy to optimize mobility and activities of daily living towards return to home with sufficient independence to care for his children. Dysarthria, mild. 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 Cognitive impairment. At baseline per BATCH AND FURNACE OPERATOR. Cryptogenic etiology of stroke. * Neurology advised a 1 month personnel monitor to rule out occult atrial fibrillation as well as laboratory evaluation for hypercoagulable state with a referral to Hematology/Oncology. * Continue aspirin and atorvastatin for secondary prevention. Monitor blood pressure. Tobacco dependence syndrome. He is advised on smoking cessation. * Continue nicotine patch and plan to taper approximately q.7 days. * Referral to a smoking cessation program as an outpatient would be appropriate. Headache. Continue acetaminophen on a p.r.n. basis. Oxycodone has also been ordered and it is hoped that he will not need opiates. Prophylaxis. He has ambulated 100 feet. He is not hemiplegic. He is obese, but he is not elderly. We will monitor for improved mobility and will not initiate any prophylactic anticoagulation at present. 12/26/16 14:39 Subjective: No complaints. Slept well. Not in pain. No cough, dyspnea, fevers, chills. Objective: Vital Signs Temp Pulse Resp BP Pulse Ox 36.9 C 64 15 111/83 H 95 12/26/16 08:28 12/26/16 08:28 12/26/16 08:28 12/26/16 08:28 12/26/16 08:28 12/25/16 12/26/16 12/27/16 05:59 05:59 05:59 Intake Total 1960 240 Output Total 1100 Balance 860 240 Physical Exam - Physical Exam General Appearance: WD/WN, alert, no apparent distress Respiratory: normal breath sounds, No crackles, No rhonchi, No wheezing Cardiac/Chest: regular rate, rhythm, No edema, No diastolic murmur, No systolic murmur Skin: normal color, warm/dry Neuro/Psych: alert, normal mood/affect, oriented x 3, speech abnormalities ( Mild dysarthria) ICD10 Worksheet Patient Problems: Problems Problem Status Onset Thalamic infarct, acute Acute
[2016-12-27 06:43] VITALS: BP 120/66; PULSE 54; TEMP 98.2; O2SAT 96
[2016-12-27 06:45] VITALS: RESP 15
[2016-12-27] MEDS: ATORVASTATIN CALCIUM 10 MG TAB PO SCH (09:39)
[2016-12-27] MEDS: NICOTINE 14 MG/24 HR PATCH TD SCH (09:39)
[2016-12-27] MEDS: ASPIRIN 81 MG CHEWABLE TAB PO SCH (09:39)
--- NOTE | 2016-12-27 10:57 | PDOREHIP ---
Admission [facility] - Admission - 3 Day Assessment Period Admission Date/Day 1: 12/25/16 Day 2: 12/26/16 Day 3: 12/27/16 Discharge [facility] - Discharge - 3 Day Assessment Period 2 Days Prior to Anticipated Discharge Date: 12/25/16 1 Day Prior to Anticipated Discharge Date: 12/26/16 Anticipated Discharge Date: 12/27/16 - Discharge Skin Conditions Unhealed Pressure Ulcer (1 or more/Stage 1 or >)-Discharge: 0. No
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
== END 2016-12-27 14:15 | disposition home or self-care (01) | DRG 57 ==
LOC: BREH 12-25 11:15
PROVIDERS: ADMIT Internal Medicine; ATTEND Internal Medicine
DX: I69.354 Hemiplegia and hemiparesis following cerebral infarction affecting left non-dominant side (principal); I69.392 Facial weakness following cerebral infarction; I69.322 Dysarthria following cerebral infarction; I69.319 Unspecified symptoms and signs involving cognitive functions following cerebral infarction; H53.2 Diplopia; I69.398 Other sequelae of cerebral infarction; F17.210 Nicotine dependence, cigarettes, uncomplicated; Z87.820 Personal history of traumatic brain injury; S06.2X9D Diffuse traumatic brain injury with loss of consciousness of unspecified duration, subsequent encounter; W22.8XXD Striking against or struck by other objects, subsequent encounter
CPT/HCPCS: 92507-GN; 92522-GN; 97110-GO; 97161-GP; 97165-GO; 97530-GO; 97532-GO; 97535-GO

== ENCOUNTER 2018-07-07 12:33 | Observation (INO) | payer OTHER, MEDICAID ==
[2018-07-07 12:55] LABS: PLATELET COUNT 279 10^3/uL (150-400)
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
[2018-07-07] MEDS ORDERED: IOPAMIDOL (ISOVUE 370) 100 ML BTL IV ONE (13:52)
[2018-07-07] MEDS ORDERED: HYDROmorphONE/DILAUDID 2 MG/ML INJ IVP ONE (14:17)
[2018-07-07] MEDS ORDERED: LIDOCAINE 4%/MENTHOL 1% PATCH TD ONE (15:17)
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
[2018-07-07] MEDS ORDERED: IBUPROFEN 200 MG TAB PO PRN (16:29)
[2018-07-07] MEDS ORDERED: PROMETHAZINE HCL 25 MG/ML INJ IVP PRN (16:29)
[2018-07-07] MEDS ORDERED: LORazepam 0.5 MG TAB PO PRN (16:29)
[2018-07-07] MEDS ORDERED: NICOTINE POLACRILEX 2 MG GUM B PRN (16:29)
[2018-07-07] MEDS ORDERED: LORazepam 2 MG/ML INJ IVP PRN (16:29)
[2018-07-07] MEDS ORDERED: ACETAMINOPHEN 325 MG TAB PO PRN (16:29)
[2018-07-07] MEDS ORDERED: ONDANSETRON DISINTEGRATING 4 MG TAB PO PRN (16:29)
[2018-07-07] MEDS ORDERED: oxyCODONE IR 5 MG TAB PO PRN (16:29)
[2018-07-07] MEDS ORDERED: ONDANSETRON 4 MG/2 ML VIAL IVP PRN (16:29)
[2018-07-07] MEDS: NICOTINE 21 MG/24 HR PATCH TD SCH (17:43)
[2018-07-07] MEDS: HYDROCODONE/APAP 5/325 TAB PO PRN (17:46)
[2018-07-07] MEDS: NS 1,000 ML IV SCH (20:24)
[2018-07-07] MEDS ORDERED: PATCH REMOVAL 1 EA PATCH TD SCH (21:00)
[2018-07-08] MEDS: HYDROCODONE/APAP 5/325 TAB PO PRN ×2 (00:38→15:34)
[2018-07-08] MEDS: NS 1,000 ML IV SCH (06:22)
[2018-07-08] MEDS: NICOTINE 21 MG/24 HR PATCH TD SCH (08:24)
[2018-07-08] MEDS: ATORVASTATIN CALCIUM 10 MG TAB PO SCH (08:30)
[2018-07-08] MEDS: CITALOPRAM 20 MG TAB PO SCH (08:30)
[2018-07-08] MEDS: ASPIRIN 81 MG CHEWABLE TAB PO SCH (08:30)
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
--- NOTE | 2018-07-08 16:38 | ECHO ---
[email or web address] [address] [address] Main: [phone] Echocardiography Examination Transthoracic Name: KEITH WEST MR#: [id number] Study Date: 07/08/2018 Study Time: 02:05 PM Date of : 1975 Age: 43 year(s) Height: 177.8 cm (70 in.) Weight: 97.52 kg (215 lb.) BSA: 2.15 m2 Gender: Male Examination: Echo Contrast: Image Quality: Adequate Rhythm: Heart Rate: BP: 113 mmHg/60 mmHg Indication: Cardiac: syncope Procedure Staff Referring Physician: Miner: Elodia Bae [facility] Reading Physician: Julius Clemente MD Requesting Provider: Ordering Physician: Hardik Saeed Indication: Cardiac: syncope Measurements Chambers AV/MV Label Value Normal Value Label Value Normal Value LVOTd 2 cm (1.9cm - 2.1cm) AR PHT 0.68 s LVOT VTI 26.9 cm (18cm - 22cm) AR PHT 677 ms LVDd, 2D 4.8 cm (4.2cm - 5.9cm) AR Vmax 4.49 m/s LVDs, 2D 3.6 cm (2.1cm - 4cm) AV PGmax 13 mmHg IVSd, 2D 1.2 cm (0.6cm - 1.1cm) AV PGmean 12 mmHg LVPWd, 2D 1.1 cm (0.6cm - 1cm) AV Vmax 2.24 m/s LVEF, BP 55 % (55% - 70%) ILAN (VTI) 1.8 cm2 LVEF, 2D 49 % (54% - 74%) MV E Vmax 0.9 m/s LVOT PGmean 3 mmHg MV A Vmax 1.22 m/s LVOT Vmean 0.85 m/s MV E/A 0.74 LA Volume, BP 70 ml (18ml - 58ml) MV E/E' lateral 10.2 LADs, 2D 4.2 cm (3cm - 4cm) MV E/E' septal 11.4 (0.5 - 1.7) LAESV index, BP 32.6 ml/m2 MV DT 264 ms RA Area 19.5 cm2 MV E' septal 0.08 m/s Additional Vessels MV PHT 0.08 s Label Value Normal Value MVA PHT 2.7 cm2 AoAsc 3.3 cm MR Reg. Volume 57 ml AoRoot, 2D 2.7 cm (1.4cm - 2.6cm) MR Vmax 4.94 m/s IVC 1.6 cm (1.2cm - 2.3cm) MR VTI 184 cm Patient: KEITH WEST Study Date: 07/08/2018 Page 1 of 3 02:05 PM MR (ERO) 0.31 cm2 MV E' lateral 0.09 m/s MR PISA Radius 0.8 cm MV E/E' mean 10.59 MR PISA Alias V. 38.5 cm/s MV PHT 83 ms MV E' mean 0.08 m/s TV/PV Label Value Normal Value RA Pressure 5 mmHg RVSP 51 mmHg TR Pmax 46 mmHg TR Vmax 3.39 m/s PV PGmax 3 mmHg PV Vmax, Caliper 0.88 m/s (0.6m/s - 0.9m/s) Conclusions Normal left ventricular size and function. LVEF estimated at 55-60% and calculated at 55 % by Moreau's. Normal left ventricular free wall thickness and wall motion. Normal LA, RA and RV dimensions. Thickened mitral leaflets that appear to be rheumatic with restricted mobility of the posterior leaflet. Moderate mitral regurgitation without stenosis. Trileaflet aortic valve with mild sclerosis. Moderate aortic regurgitation. Normal-appearing tricuspid valve. Syqc-az-zkwlgsyw tricuspid regurgitation. Moderately elevated estimated RVSP of 51 mmHg. No pericardial effusion. The patient had a previous study December of 2016. At that time, the degree of mitral regurgitation was noted to be [id number] and the degree of aortic regurgitation was noted to be [id number]. Findings Left Ventricle: Left ventricle is normal in size. Normal global systolic left ventricular function. The ejection fraction, measured by Simpsons method, is 55 %. EF range is estimated at 55 % - 60 %. Left ventricle wall thickness is normal. There are no regional wall motion abnormalities. No LV hypertrophy. Right Ventricle: Normal size right ventricle. Right ventricular systolic function is normal. Left Atrium: Negative bubble study 12/23/16. The left atrium is normal in size. Right Atrium: The right atrium is normal in size. Mitral Valve: Mitral valve appears structurally normal. Moderate mitral regurgitation. No mitral valve stenosis. There is mild mitral thickening. Aortic Valve: Aortic leaflets are structurally normal. Moderate aortic regurgitation is present. There is no aortic stenosis. There is aortic sclerosis present. Tricuspid Valve: Tricuspid valve leaflets are structurally normal. Mild to moderate tricuspid regurgitation. No tricuspid valve stenosis. Right Ventricular systolic pressure is measured at 51 mmHg. Pulmonary artery pressure moderately increased. Pulmonic Valve: Pulmonic leaflets are structurally normal. Trivial pulmonic valve regurgitation is present. Aorta: The aortic root size in 2D measures 2.7 cm. The ascending aorta measures 3.3 cm. Aorta Measurements AoRoot, 2D is 2.7 cm. Patient: KEITH WEST Study Date: 07/08/2018 Page 2 of 3 02:05 PM IVC: The inferior vena cava is normal in size. Pericardium: No pericardial effusion. Exam Details Procedure Ordered: Echo Procedure Status: Routine study Image Quality: Adequate Facility Location: Cardiac Echo 1 (No Signature Object) Patient: KEITH WEST Study Date: 07/08/2018 Page 3 of 3 02:05 PM [id number]
[2018-07-09] MEDS: NICOTINE 21 MG/24 HR PATCH TD SCH (08:09)
[2018-07-09] MEDS: ASPIRIN 81 MG CHEWABLE TAB PO SCH (08:10)
[2018-07-09] MEDS: CITALOPRAM 20 MG TAB PO SCH (08:10)
[2018-07-09] MEDS: ATORVASTATIN CALCIUM 10 MG TAB PO SCH (08:10)
[2018-07-09 11:18] VITALS: BP 148/76
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
--- NOTE | 2018-07-09 15:53 | ASMTLACE ---
LACE Length of stay for Answers: 2 days current admission Comorbidities - select Answers: Cerebrovascular disease all that apply (CVA, TIA, aneurysms, vasc ular dementia) Other Notes: HTN; HLD # of Emergency department Answers: 1-2 visits in the last 6 months Score: 5 Date Signed: 07/09/2018 03:52 PM Electronically Signed By:Lyric Leavitt.MARQUISE
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
== END 2018-07-09 16:21 | disposition home or self-care (01) ==
LOC: EDUNIT# → EEVIPCON 12:33 → F2W 15:56
PROVIDERS: ADMIT Internal Medicine; ATTEND Family Medicine
DX: R55 Syncope and collapse (principal); R00.1 Bradycardia, unspecified; I10 Essential (primary) hypertension; E78.5 Hyperlipidemia, unspecified; F43.20 Adjustment disorder, unspecified; F41.9 Anxiety disorder, unspecified; Z87.820 Personal history of traumatic brain injury; Z86.73 Personal history of transient ischemic attack (TIA), and cerebral infarction without residual deficits; Z63.5 Disruption of family by separation and divorce
CPT/HCPCS: 70450; 71046; 71275; 72100; 93306; 96374; 99285; G0378; 80305; 84484-ER; J1170; Q9967